=== PATIENT | male | born 1940 | race Caucasian/White ===

== ENCOUNTER → 2018-02-17 | Outpatient (CLI) | payer MEDICARE, BC ==
[2018-02-17] MEDS: REGADENOSON 0.4 MG/5 ML DISP.SYRIN. IV ONE (10:22)
--- NOTE | 2018-02-17 12:40 | RAD ---
MR#: [id number] Date of Study: 02/17/2018 Ordering Physician: HARLEEN CR, Referring Physician: QI FOOTE Tech: RT Filiberto Vicente) (N) APPROVED REPORT Test Type: Pharmacological Stress Nurse/Tech: Kassidy Miller RN Test Indications: Dyspnea Cardiac History: Hypertension, Family history Medications: See Electronic Medical Record Medical History: See Electronic Medical Record Resting Heart Rate: 51 bpm Resting Blood Pressure: 139/59mmHg Pretest Chest Pain: None Nurse/Tech Notes S1,S2 irregular. Lungs are diminished in the bases. Patient stated he has been tired and short of b reath lately. Consent: The procedure was explained to the patient in lay terms. Informed consent was witnessed. Dexter eout was entered into [employer]. History and Stress Test performed by RT Jules (Hasmukh) (N) Pharm. Details Pharmacologic stress testing was performed using 0.4mg per 5ml of regadenoson given intravenously ove r 7-10 seconds. Stress Symptoms No chest pain or symptoms. POST EXERCISE Reason for Termination: Infusion complete Target HR: No Max HR: 69 bpm Max Blood Pressure: 150/65mmHg Blood Pressure response to exercise: Abnormal blood pressure response during stress. Heart Rate response to exercise: WNL Chest Pain: No. Arrhythmia: No. ST Change: No. INTERPRETATION Stress EKG Conclusion: The resting EKG shows a sinus bradycardia and mild nonspecific ST segment wasserman ges. The stress EKG shows no significant changes from baseline. No EKG evidence of stressed induced ischemia Imaging Protocol IMAGE PROTOCOL: Rest Tc-99m/stress Tc-99m 1 day Rest: Stress: Viability: Radiopharm.Tc99m [id number] Sestamibi [id number] 34.2mCi Duration 13min. 13min. Img Date 02/17/2018 02/17/2018 Inj-Img [id number]. 60min. Rest Admin Site:IV - Left AntecubitalAdministrator:RT Filiberto Vicente)(N) Stress Admin Site: IV - Right AntecubitalAdministrator: Gabriella West, RT (R)(N) STRESS DATA End Diast. Vol.85.0mlLVEDV index BSA40.0ml End Syst. Vol.23.0mlLVESV index BSA11.0ml Myocardial Ezoc623.0gEject. Nigyocyt82.0% Stress Scores Regional WT1.00Summed WT10.00 Regional WM0.00Summed WM0.00 LV Perfusion The stress scans showed no significant defects. The rest scans showed no significant defects. Nuclear imaging shows no reversible ischemia or infarct. Wall Motion Left ventricular systolic function is normal with an ejection fraction of greater than 70%. LV Perf. Quant 17 Seg. SSS3.00 17 Seg. SRS0.00 17 Seg. SDS3.00 Stress Defect Extent (% LAD)1.90Rest Defect Extent (% LAD)0.00Rev. Defect Extent (% LAD)1.30 Stress Defect Extent (% LCX) 11.30Rest Defect Extent (% LCX)0.00Rev. Defect Extent (% LCX)1.30 Stress Defect Extent (% RCA)0.00Rest Defect Extent (% RCA)0.00Rev. Defect Extent (% RCA)0.00 Stress Defect Extent (% LALITA)5.40Rest Defect Extent (% LALITA)0.00Rev. Defect Extent (% LALITA)2.40 Conclusion 1. No EKG evidence of stressed induced ischemia. 2. Nuclear imaging shows no reversible ischemia or infarct. 3. Good LV systolic function with an ejection fraction of greater than 70%. 4. Low risk Lexiscan nuclear stress test. Signed by : Harleen Cr MD Electronically Approved : 02/17/2018 12:40:02
== END | disposition home or self-care (01) ==
LOC: NM 09:48
PROVIDERS: ATTEND Internal Medicine Cardiovascular Disease
DX: R06.02 Shortness of breath (principal); Z83.3 Family history of diabetes mellitus
CPT/HCPCS: 78452; 93017; 96374; 96375; 96376; A9500; J2785